=== PATIENT | female | born 1960 | race Caucasian/White ===

== ENCOUNTER 2017-04-17 07:57 | Outpatient (CLI) ==
--- NOTE | 2017-04-17 09:08 | MAMMO ---
EXAM: Digital screening mammogram with 3-D tomosynthesis and CAD HISTORY: Screening mammogram COMPARISON: None FINDINGS: Bilateral CC and MLO views of the breasts were performed digitally and demonstrate scatter ed fibroglandular breast density. Bilateral benign calcifications are present. There is no abnormal n odule or calcification. IMPRESSION: No suspicious calcification or nodule RECOMMENDATION: Annual screening mammogram BIRADS category II: Benign findings
== END 2017-04-17 07:58 | disposition home or self-care (01) ==
LOC: RAD 07:57
PROVIDERS: ATTEND Family Medicine
DX: Z12.31 Encounter for screening mammogram for malignant neoplasm of breast (principal)
CPT/HCPCS: 77067

== ENCOUNTER 2017-07-09 14:21 | Outpatient (CLI) | END 2017-07-09 14:22 | disposition home or self-care (01) | LOC: CAR 14:21 | PROVIDERS: ATTEND Family Medicine | DX: I10 Essential (primary) hypertension (principal) | CPT/HCPCS: 93005; 93010 ==